=== PATIENT | male | born 1995 | race Caucasian/White ===

== ENCOUNTER 2017-08-04 17:52 | Emergency (ER) | payer OTHER ==
[2017-08-04 18:22] VITALS: BP 141/87; PULSE 78; TEMP 98.3; BMI 27.3
--- NOTE | 2017-08-04 18:27 | PDOC ---
History of Present Illness - General History Source: Patient <Radha Jiménez - Last Filed: 08/04/17 19:02> - General History Source: Patient (Walks in with complaints of right sided chest pain. ) Exam Limitations: No Limitations - History of Present Illness Timing/Duration: 24 hours (Began yesterday night at 8pm, following a nap. ) Aspirin Received prior to arrival: Yes: 81 mg x 2 (No relief. ) <Juan David Tariq - Last Filed: 08/04/17 19:21> - General Chief Complaint: Chest Pain Stated Complaint: CHEST PAIN WITH COUGHING Time Seen by Provider: 08/04/17 17:58 Past History - Past Medical History COPD: No Other medical history: pt denies - Suicide/Smoking/Psychosocial Hx Smoking History: Current every day smoker Number of Cigarettes Smoked Daily: 5 Information on smoking cessation initiated: Yes 'Breaking Loose' booklet given: 08/04/17 Hx Alcohol Use: Yes (occasional) Drug/Substance Use Hx: No Substance Use Type: None <Radha Jiménez - Last Filed: 08/04/17 19:02> - Suicide/Smoking/Psychosocial Hx Comments:: 08/04/17 19:21 Patient works in [employer]. 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 <Juan David Tariq - Last Filed: 08/04/17 19:21> - Past Medical History Allergies/Adverse Reactions: Allergies Allergy/AdvReac Type Severity Reaction Status Date / Time No Known Allergies Allergy Verified 08/04/17 17:54 Home Medications: Ambulatory Orders NK [No Known Home Medication] 08/04/17 Review of Systems - Review of Systems Able to Perform ROS?: Yes Cardiac (ROS): Yes: Chest Pain <Juan David Tariq - Last Filed: 08/04/17 19:21> *Physical Exam - Vital Signs Last Vital Signs Temp Pulse Resp BP Pulse Ox 98.3 F 78 18 141/87 98 08/04/17 17:53 08/04/17 17:53 08/04/17 17:53 08/04/17 17:53 08/04/17 17:53 <Radha Jiménez - Last Filed: 08/04/17 19:02> - Vital Signs Last Vital Signs Temp Pulse Resp BP Pulse Ox 98.3 F 78 18 141/87 98 08/04/17 17:53 08/04/17 17:53 08/04/17 17:53 08/04/17 17:53 08/04/17 17:53 - Physical Exam Respiratory/Chest: positive: Chest Tender (Pain on palpitation at lower costal sternal joint. ) <Juan David Tariq - Last Filed: 08/04/17 19:21> *DC/Admit/Observation/Transfer - Discharge Dispostion Admit: No <Radha Jiménez - Last Filed: 08/04/17 19:02> - Attestations Scribe Attestion: 08/04/17 19:20 Documentation prepared by Juan David Tariq, acting as medical claims specialist for Radha Jiménez MD/DO. <Juan David Tariq - Last Filed: 08/04/17 19:21> Diagnosis at time of Disposition: Costochondritis Chest pain Qualifiers: Chest pain type: other chest pain Qualified Code(s): R07.89 - Other chest pain - Discharge Dispostion Disposition: HOME Condition at time of disposition: Stable - Referrals - Patient Instructions Printed Discharge Instructions: DI for Atypical Chest Pain, Smoking Cessation Additional Instructions: Advil x 3 / day Avoid heavy lifting - Post Discharge Activity Forms/Work/School Notes: Back to Work
--- NOTE | 2017-08-06 17:42 | EKG ---
Test Reason : Blood Pressure : / mmHG Vent. Rate : 061 BPM Atrial Rate : 061 BPM P-R Int : 178 ms QRS Dur : 090 ms QT Int : 382 ms P-R-T Axes : 034 036 030 degrees QTc Int : 384 ms NORMAL SINUS RHYTHM WITH SINUS ARRHYTHMIA NO PREVIOUS ECGS AVAILABLE Confirmed by MD ERUM, HILDA ([id number]) on 08/06/2017 5:41:46 PM Referred By: DR PEDERSEN Confirmed By:HILDA DANIELSON MD
== END 2017-08-04 19:10 | disposition home or self-care (01) ==
LOC: FER 17:52
DX: R07.89 Other chest pain (principal)
CPT/HCPCS: 71046-TC; 93005; 99282-25

== ENCOUNTER 2018-08-23 18:05 | Emergency (ER) | payer OTHER | END 2018-08-23 19:48 | disposition home or self-care (01) | LOC: JERFT 18:05 ==

== ENCOUNTER 2021-11-10 18:00 | Emergency (ER) | payer OTHER ==
[2021-11-10] MEDS ORDERED: DIPHTH,PERTUSS(ACELL),TET 0.5 ML DISP.SYRIN IM ONE ×2 (18:11→18:13)
[2021-11-10 18:19] VITALS: BP 144/64; PULSE 96; TEMP 97.8; BMI 32.3
== END 2021-11-10 18:25 | disposition home or self-care (01) ==
LOC: FER 18:00
PROC: 3E0234Z Introduction of Serum, Toxoid and Vaccine into Muscle, Percutaneous Approach (ICD-10-PCS; principal; 2021-11-10)
DX: S00.81XA Abrasion of other part of head, initial encounter (principal); W22.8XXA Striking against or struck by other objects, initial encounter
CPT/HCPCS: 90715; 99283-25

== ENCOUNTER 2022-01-15 20:19 | Emergency (ER) | payer SELFPAY ==
[2022-01-15 20:27] VITALS: BP 126/99; PULSE 110; TEMP 101.1; BMI 33.7
[2022-01-15] MEDS ORDERED: ACETAMINOPHEN 500 MG TABLET (FP) PO ONE (21:00)
[2022-01-15] MEDS ORDERED: ACETAMINOPHEN 500 MG TABLET (FP) ONE (21:02)
== END 2022-01-15 21:24 | disposition home or self-care (01) ==
LOC: FER 20:19
DX: U07.1 COVID-19 (principal)
CPT/HCPCS: 0241U-QW; 99283-25